=== PATIENT | female | born 1970 | race Caucasian/White ===

== ENCOUNTER → 2016-09-30 14:55 | Outpatient (CLI) | payer MEDICAID | END | disposition home or self-care (01) | LOC: D.CT 14:55 | DX: M84.374A Stress fracture, right foot, initial encounter for fracture (principal) ==

== ENCOUNTER 2017-05-05 11:00 | Outpatient (CLI) | payer MEDICAID ==
[~2017-05-05] VITALS: Ht 170.2 cm; Wt 73.6 kg
[2017-05-05] MEDS ORDERED: PHENADOZ25 MG/SUPP RC (12:29)
[2017-05-05] MEDS ORDERED: BUT PO (12:29)
[2017-05-05] MEDS ORDERED: IMITREX50 MG PO (12:29)
[2017-05-05] MEDS ORDERED: [UNRECOGNIZED DRUG - OTHER] PO (12:29)
[2017-05-05] MEDS ORDERED: ULTRAM50 MG PO (12:30)
[2017-05-05] MEDS ORDERED: ATIVAN0.5 MG PO (12:30)
[2017-05-05] MEDS ORDERED: LEXAPRO20 MG PO (12:30)
[2017-05-05] MEDS ORDERED: LOPRESSOR25 MG PO (12:30)
[2017-05-05] MEDS ORDERED: FLUTICASONE PRO16 GM NASAL (12:30)
[2017-05-05] MEDS ORDERED: ESTRACE1 MG PO (12:31)
[2017-05-05] MEDS ORDERED: LINZESS145 MCG PO (12:31)
[2017-05-05 12:39] VITALS: BP 116/69; Ht 170.2 cm; Wt 73.6 kg
--- NOTE | 2017-05-05 13:02 | NUR ---
1235- MEDICATION REGIMEN STARTED PER ORDERD. 1300- REGIMEN CONTINUES. PT UP OOB WITH MINIMAL ASSIST TO BR, VOIDED WITHOUT DIFFICULTY. ICE WATER OFFERED AND AT BEDSIDE. WILL MONITOR. MOTHER AT BEDSIDE.
--- NOTE | 2017-05-05 14:20 | NUR ---
1410- MEDICATION REGIMEN COMPLETED. IV D/C'D, PT TOLERATED. CATHETER INTACT. STILL HAS A MIGRAINE BUT REPORTS THAT IT HAS EASED UP A BIT. 1415- DISCHARGE INSTRUTIONS GIVEN, PT VERBALIZED UNDERSTANDING. PT DISCHARGED VIA WHEELCHAIR WITH MOTHER.
== END 2017-05-05 14:15 | disposition home or self-care (01) ==
LOC: D.OPS 11:00
DX: G43.909 Migraine, unspecified, not intractable, without status migrainosus (principal)